=== PATIENT | male | born 1985 | race Caucasian/White ===

== ENCOUNTER 2018-11-26 12:03 | Day surgery (SDC) | payer OTHER ==
[~2018-11-26] VITALS: Ht 188 cm; Wt 98.9 kg
[~2018-11-26 12:03] MED LIST: FLUTISP
[2018-11-26] MEDS ORDERED: PROPOFOL 500 MG/50 ML VIAL As Ordered ONE (12:18)
[2018-11-26] MEDS ORDERED: LIDOCAINE 2% INJ 100 MG/5 ML SDV (FOR ANES.) As Ordered ONE (12:22)
[2018-11-26] MEDS: NS 1,000 ML IV ONE (12:25)
[2018-11-26] MEDS ORDERED: fentaNYL 100 MCG/2 ML INJECTION (J3010) As Ordered ONE (12:33)
--- NOTE | 2018-11-26 13:21 | ROOR ---
Patient Name: Logan Clayton Procedure Date: 11/26/2018 1:01 PM Date of : 1985 Age: 33 Room: [facility] Gender: Male Note Status: Finalized Procedure: Upper Endoscopy + Biopsies + Dilatation Indications: Dysphagia, Heartburn Providers: Hayder Javier MD Referring MD: Olga Fernandez Requesting Provider: Medicines: Monitored Anesthesia Care Complications: No immediate complications. Procedure: Pre-Anesthesia Assessment: - The heart rate, respiratory rate, oxygen saturations, blood pressure, adequacy of pulmonary ventilation, and response to care were monitored throughout the procedure. The Endoscope was introduced through the mouth, and advanced to the second part of duodenum. The upper GI endoscopy was accomplished without difficulty. The patient tolerated the procedure well. Findings: The Z-line was regular and was found 40 cm from the incisors. A small hiatal hernia was present. A non-obstructing Schatzki ring was found at the gastroesophageal junction. A TTS dilator was passed through the scope. Dilation with an 18-19-20 mm balloon dilator was performed to 20 mm. Biopsies were taken with a cold forceps for histology. The exam was otherwise without abnormality. Impression: - Z-line regular, 40 cm from the incisors. - Small hiatal hernia. - Non-obstructing Schatzki ring. Dilated. Biopsied. - The examination was otherwise normal. Recommendation: - Await pathology results. - Discharge patient to home. - Follow an antireflux regimen. - Use Prilosec (omeprazole) 40 mg PO daily. - Return to referring physician. - The findings and recommendations were discussed with the patient's family. Hayder Javier MD Hayder Javier MD 11/26/2018 1:20:56 PM Electronically signed by Hayder Javier MD Number of Addenda: 0 Note Initiated On: 11/26/2018 1:01 PM Estimated Blood Loss: Estimated blood loss: none.
[2018-11-26] MEDS ORDERED: PROPOFOL 200 MG/20 ML VIAL As Ordered ONE (13:24)
--- NOTE | 2018-11-26 13:37 | ROOR ---
Patient Name: Logan Clayton Procedure Date: 11/26/2018 1:03 PM Date of : 1985 Age: 33 Room: [facility] Gender: Male Note Status: Finalized Procedure: Total Colonoscopy to Cecum + Cold Snare Polypectomy + Hemoclip Indications: Colon cancer screening in patient at increased risk: Family history of 1st-degree relative with colon polyps Providers: Hayder Javier MD Referring MD: Olga Fernandez Requesting Provider: Medicines: Monitored Anesthesia Care Complications: No immediate complications. Procedure: Pre-Anesthesia Assessment: - The heart rate, respiratory rate, oxygen saturations, blood pressure, adequacy of pulmonary ventilation, and response to care were monitored throughout the procedure. The Colonoscope was introduced through the anus and advanced to the cecum, identified by appendiceal orifice and ileocecal valve. The colonoscopy was performed without difficulty. The patient tolerated the procedure well. The quality of the bowel preparation was excellent. Findings: The perianal and digital rectal examinations were normal. Non-bleeding internal hemorrhoids were found during retroflexion. The hemorrhoids were small and Grade I (internal hemorrhoids that do not prolapse). Two sessile polyps were found in the rectum. The polyps were small in size. These polyps were removed with a cold snare. Resection and retrieval were complete. The exam was otherwise without abnormality on direct and retroflexion views. Impression: - Non-bleeding internal hemorrhoids. - Two small polyps in the rectum, removed with a cold snare. Resected and retrieved. - The examination was otherwise normal on direct and retroflexion views. - The exam was otherwise normal to the cecum. Recommendation: - Patient has a contact number available for emergencies. The signs and symptoms of potential delayed complications were discussed with the patient. Return to normal activities tomorrow. Written discharge instructions were provided to the patient. - High fiber diet. - Discharge patient to home. - Continue present medications. - Await pathology results. - Repeat colonoscopy in 5 years for surveillance. - Return to referring physician. - Telephone GI clinic for pathology results in 1 week. - The findings and recommendations were discussed with the patient's family. Hayder Javier MD Hayder Javier MD 11/26/2018 1:37:02 PM Electronically signed by Hayder Javier MD Number of Addenda: 0 Note Initiated On: 11/26/2018 1:03 PM Estimated Blood Loss: Estimated blood loss: none.
[2018-11-26 14:00] VITALS: BP 123/81
== END 2018-11-26 14:20 | disposition home or self-care (01) ==
LOC: M OPP 12:03
PROVIDERS: ATTEND Internal Medicine Gastroenterology
DX: Z12.11 Encounter for screening for malignant neoplasm of colon (principal); Z83.71 Family history of colonic polyps; K64.0 First degree hemorrhoids; K62.1 Rectal polyp; K44.9 Diaphragmatic hernia without obstruction or gangrene; K22.2 Esophageal obstruction; R13.10 Dysphagia, unspecified; R12 Heartburn
CPT/HCPCS: 43249; 45385; 88305; J3010

== ENCOUNTER → 2021-01-01 | Outpatient (CLI) | payer OTHER ==
[~2021-01-01] MED LIST changes: +PROHANCE 279.3MG/ML 15ML VIAL ONE; +PROHANCE 279.3MG/ML 5ML VIAL ONE
--- NOTE | 2021-01-02 19:30 | REPVR ---
PROCEDURE INFORMATION: Exam: MR Head Without and With Contrast; Internal Auditory Canals Exam date and time: 01/01/2021 12:10 PM Age: 35 years old Clinical indication: Other: Tinnitis right; Additional info: Tinnitus RT ear, HX trauma to head TECHNIQUE: Imaging protocol: MR of the head without and with intravenous contrast. Exam focused on the internal auditory canals. Contrast material: PROHANCE; Contrast volume: 20 ml; Contrast route: INTRAVENOUS (IV); COMPARISON: No relevant prior studies available. FINDINGS: Brain: No intracranial hemorrhage or extra-axial fluid collection. No evidence of mass effect or midline shift. No white matter abnormalities. No restricted diffusion to suggest acute infarct. Normal appearance of cranial nerves on thin T2 sequences. Cerebellopontine angle cisterns are clear. Meckel's caves are clear. Internal auditory canals are clear. No abnormal intracranial enhancement. Ventricles: Ventricles, cisterns, and sulci are normal. Mastoid air cells: Unremarkable. No effusions. Bones/joints: Unremarkable. IMPRESSION: No acute intracranial findings. Electronically signed by: Dashawn House On 01/02/2021 19:30:00 PM
== END ==
LOC: M PLAIMG 11:21
PROVIDERS: ATTEND Otolaryngology
DX: H93.11 Tinnitus, right ear (principal)
CPT/HCPCS: 70553; A9576

== ENCOUNTER 2021-02-17 07:35 | Day surgery (SDC) | payer OTHER ==
[~2021-02-17] VITALS: Ht 182.9 cm; Wt 106.5 kg
[~2021-02-17 07:35] MED LIST changes: +LIDOCAINE 1% MDV 20ML VIAL SQ PRN; +LR 1,000 ML IV ONE; -PROHANCE 279.3MG/ML 15ML VIAL ONE; -PROHANCE 279.3MG/ML 5ML VIAL ONE
[2021-02-17] MEDS ORDERED: CIPRODEX OTIC SUSP 7.5ML As Ordered ONE (08:04)
[2021-02-17] MEDS ORDERED: DESFLURANE 240 ML INHALANT As Ordered ONE (08:12)
[2021-02-17] MEDS ORDERED: LIDOCAINE 2% 100MG/5ML SDV (FOR ANES.) As Ordered ONE (10:09)
[2021-02-17] MEDS ORDERED: propofoL 200 MG/20 ML VIAL As Ordered ONE (10:09)
[2021-02-17] MEDS ORDERED: ONDANSETRON 4MG/2ML VIAL As Ordered ONE (10:10)
[2021-02-17] MEDS ORDERED: dexameTHASONE 4 MG/ML 1ML VIAL (J1100 PER 1MG) As Ordered ONE (10:10)
[2021-02-17] MEDS ORDERED: fentaNYL 100 MCG/2 ML INJECTION As Ordered ONE (10:10)
[2021-02-17] MEDS ORDERED: MIDAZOLAM INJ 2MG/2ML VIAL (J2250 PER 1MG) As Ordered ONE (10:13)
[2021-02-17 11:45] VITALS: BP 124/77
[2021-02-17] MEDS ORDERED: LR 1,000 ML IV SCH ×2 (11:45→11:50)
[2021-02-17] MEDS ORDERED: fentaNYL 100 MCG/2 ML INJECTION IV PRN (11:45)
[2021-02-17] MEDS ORDERED: ONDANSETRON 4MG/2ML VIAL IV PRN (11:45)
[2021-02-17] MEDS ORDERED: PERCOCET 5MG/325MG TAB PO PRN (11:45)
== END 2021-02-17 12:05 | disposition home or self-care (01) ==
LOC: M SDC 07:35
PROVIDERS: ATTEND Otolaryngology
DX: H69.81 Other specified disorders of Eustachian tube, right ear (principal); H93.11 Tinnitus, right ear; M54.9 Dorsalgia, unspecified; G47.30 Sleep apnea, unspecified; Z87.828 Personal history of other (healed) physical injury and trauma
CPT/HCPCS: 69436; J1100; J2250; J2405; J3010

== ENCOUNTER 2021-09-29 09:15 | Day surgery (SDC) | payer OTHER ==
[~2021-09-29] VITALS: Ht 188 cm; Wt 98.4 kg
[~2021-09-29 09:15] MED LIST changes: +AMIT50TA PO; -LIDOCAINE 1% MDV 20ML VIAL SQ PRN; +LIDOCAINE 2% 100MG/5ML SDV (FOR ANES.) As Ordered ONE; -LR 1,000 ML IV ONE; +NS 1,000 ML IV ONE; +PROZ40CA PO; +fentaNYL 100 MCG/2 ML INJECTION As Ordered ONE; +propofoL 500 MG/50 ML VIAL As Ordered ONE
[2021-09-29 10:50] VITALS: BP 123/85
== END 2021-09-29 11:02 | disposition home or self-care (01) ==
LOC: M OPP 09:15
PROVIDERS: ATTEND Internal Medicine Gastroenterology
DX: Z12.11 Encounter for screening for malignant neoplasm of colon (principal); Z86.010 Personal history of colon polyps; K64.0 First degree hemorrhoids; R13.10 Dysphagia, unspecified; I10 Essential (primary) hypertension; G47.30 Sleep apnea, unspecified; Z79.899 Other long term (current) drug therapy; Z99.89 Dependence on other enabling machines and devices; Z86.79 Personal history of other diseases of the circulatory system
CPT/HCPCS: 43249; 45378; J3010

== ENCOUNTER 2021-12-21 12:30 | Emergency (ER) | payer OTHER ==
[~2021-12-21] VITALS: Ht 185.4 cm; Wt 105.7 kg
[~2021-12-21 12:30] MED LIST changes: -LIDOCAINE 2% 100MG/5ML SDV (FOR ANES.) As Ordered ONE; -NS 1,000 ML IV ONE; -fentaNYL 100 MCG/2 ML INJECTION As Ordered ONE; -propofoL 500 MG/50 ML VIAL As Ordered ONE
[2021-12-21 14:31] LABS: BASO % 0.6 % (0.0-1.0); EOS # 0.2 10^3/uL (0.0-0.5); EOS % 3.1 % (0.0-3.0); HEMATOCRIT 42.5 % (42.0-52.0); LYMPH # 1.2 10^3/uL (1.5-5.0); LYMPH % 17.2 % (24.0-44.0); MEAN CORPUSCULAR HEMOGLOBIN 29.6 pg (27.0-33.0); MEAN CORPUSCULAR HGB CONC 32.9 g/dl (32.0-36.5); MEAN CORPUSCULAR VOLUME 89.9 fl (80.0-96.0); MONO # 0.6 10^3/uL (0.0-0.8); MONO % 8.9 % (2.0-8.0); NEUTROPHILS # 4.7 10^3/uL (1.5-8.5); NEUTROPHILS % 69.9 % (36.0-66.0); PLATELET COUNT, AUTOMATED 284 10^3/uL (150-450); RED BLOOD COUNT 4.73 10^6/uL (4.30-6.10); WHITE BLOOD COUNT 6.8 10^3/uL (4.0-10.0)
[2021-12-21 14:43] VITALS: BP 132/86
== END 2021-12-21 14:45 | disposition home or self-care (01) ==
LOC: M ED 12:30
DX: K62.5 Hemorrhage of anus and rectum (principal); I10 Essential (primary) hypertension; G47.33 Obstructive sleep apnea (adult) (pediatric); F41.9 Anxiety disorder, unspecified; Z79.899 Other long term (current) drug therapy

== ENCOUNTER 2022-02-08 11:53 | Day surgery (SDC) | payer OTHER ==
[~2022-02-08] VITALS: Ht 185.4 cm; Wt 106.1 kg
[~2022-02-08 11:53] MED LIST changes: +dexameTHASONE 4 MG/ML 1ML VIAL (J1100 PER 1MG) IV ONE
[2022-02-08] MEDS ORDERED: LR 1,000 ML IV SCH (12:10)
[2022-02-08] MEDS ORDERED: MIRT1TAB17 PO (12:28)
[2022-02-08] MEDS ORDERED: CIPRODEX OTIC SUSP 7.5ML As Ordered ONE (13:51)
[2022-02-08] MEDS ORDERED: METHYLENE BLUE 0.5% (5MG/ML) 10 ML AMP (PROVAYBLUE) As Ordered ONE (13:51)
[2022-02-08] MEDS ORDERED: OXYMETAZOLINE 0.05% NASAL SPRAY (AFRIN) As Ordered ONE (13:52)
[2022-02-08] MEDS ORDERED: EPINEPHrine 1MG/ML INJ 30ML MD-VIAL As Ordered ONE (13:52)
[2022-02-08] MEDS ORDERED: propofoL 200 MG/20 ML VIAL As Ordered ONE (14:00)
[2022-02-08] MEDS ORDERED: LIDOCAINE 2% 100MG/5ML SDV (FOR ANES.) As Ordered ONE (14:01)
[2022-02-08] MEDS ORDERED: MIDAZOLAM INJ 2MG/2ML VIAL (J2250 PER 1MG) As Ordered ONE (14:03)
[2022-02-08] MEDS ORDERED: fentaNYL 100 MCG/2 ML INJECTION As Ordered ONE (14:03)
[2022-02-08] MEDS ORDERED: ONDANSETRON 4MG 2ML VIAL As Ordered ONE (14:04)
[2022-02-08] MEDS ORDERED: ACETAMINOPHEN 1000MG 100ML IV BAG As Ordered ONE (14:40)
[2022-02-08] MEDS ORDERED: oxyCODONE 5MG TAB PO PRN (15:35)
[2022-02-08] MEDS ORDERED: fentaNYL 100 MCG/2 ML INJECTION IV PRN (15:35)
[2022-02-08] MEDS ORDERED: ONDANSETRON 4MG 2ML VIAL IV PRN (15:35)
[2022-02-08] MEDS ORDERED: KETOROLAC 30 MG/ML 1ML VIAL IV STA (17:33)
[2022-02-08 18:15] VITALS: BP 126/69
== END 2022-02-08 18:18 | disposition home or self-care (01) ==
LOC: M SDC 11:53
PROVIDERS: ATTEND Otolaryngology
DX: H69.91 Unspecified Eustachian tube disorder, right ear (principal); F41.9 Anxiety disorder, unspecified; F43.10 Post-traumatic stress disorder, unspecified; Z79.899 Other long term (current) drug therapy
CPT/HCPCS: 69421; 69705; J0131; J0171; J1885; J2250; J2405; J3010

== ENCOUNTER → 2022-03-18 | Outpatient (CLI) | payer OTHER ==
[~2022-03-18] MED LIST changes: +MIRT1TAB17 PO; -dexameTHASONE 4 MG/ML 1ML VIAL (J1100 PER 1MG) IV ONE
== END ==
LOC: M PLAIMG 06:42
PROVIDERS: ATTEND Physical Medicine & Rehabilitation
DX: M51.24 Other intervertebral disc displacement, thoracic region (principal); M50.322 Other cervical disc degeneration at C5-C6 level

== ENCOUNTER → 2023-03-01 | Outpatient (CLI) | payer OTHER | LOC: M RAD 08:45 | PROVIDERS: ATTEND Otolaryngology | DX: J32.0 Chronic maxillary sinusitis (principal); J32.4 Chronic pansinusitis ==

== ENCOUNTER → 2023-04-21 | Outpatient (CLI) | payer OTHER | LOC: M PLAIMG 10:11 | PROVIDERS: ATTEND Physician Assistant | DX: M47.22 Other spondylosis with radiculopathy, cervical region (principal); M50.21 Other cervical disc displacement, high cervical region ==

== ENCOUNTER 2023-05-05 10:09 | Emergency (ER) | payer OTHER ==
[2023-05-05] MEDS ORDERED: PROC2.5C (11:27)
[2023-05-05] MEDS ORDERED: MIDO5TA (11:27)
[2023-05-05] MEDS ORDERED: SILD50TA2 (11:27)
[2023-05-05] MEDS ORDERED: OFLOSO (11:27)
[2023-05-05] MEDS ORDERED: RIZA10TA2 (11:27)
[2023-05-05] MEDS ORDERED: PROP20TA72 (11:27)
[2023-05-05] MEDS ORDERED: GABA-282 (11:27)
[2023-05-05] MEDS ORDERED: VENL37.598 PO (11:27)
[2023-05-05] MEDS ORDERED: OMEP40CA5 (11:27)
[2023-05-05] MEDS ORDERED: AMIT75TA (11:27)
[2023-05-05] MEDS ORDERED: VENL150C43 PO (11:27)
[2023-05-05] MEDS ORDERED: ALBU8.5H (11:27)
[2023-05-05] MEDS ORDERED: GUAI600T12 (11:27)
[2023-05-05] MEDS: IPRATROPIUM 0.5MG/ALBUTEROL 2.5MG INH SOL UD 3ML (DUONEB) NEB PRN (11:42)
[2023-05-05 12:14] LABS: BASO # 0.1 10^3/uL (0.0-0.2); BASO % 1.1 % (0.0-1.0); EOS # 0.2 10^3/uL (0.0-0.5); HEMATOCRIT 46.1 % (42.0-52.0); HEMOGLOBIN 15.5 g/dl (13.5-17.5); LYMPH # 1.3 10^3/uL (1.5-5.0); LYMPH % 24.4 % (24.0-44.0); MEAN CORPUSCULAR HEMOGLOBIN 29.3 pg (27.0-33.0); MEAN CORPUSCULAR HGB CONC 33.6 g/dl (32.0-36.5); MEAN CORPUSCULAR VOLUME 87.1 fl (80.0-96.0); MONO # 0.5 10^3/uL (0.0-0.8); MONO % 10.2 % (2.0-8.0); NEUTROPHILS # 3.3 10^3/uL (1.5-8.5); NEUTROPHILS % 61.1 % (36.0-66.0); PLATELET COUNT, AUTOMATED 268 10^3/uL (150-450); RED BLOOD COUNT 5.29 10^6/uL (4.30-6.10); WHITE BLOOD COUNT 5.3 10^3/uL (4.0-10.0)
[2023-05-05 12:18] LABS: ERYTHROCYTE SEDIMENTATION RATE 35 mm/hr (0-15)
[2023-05-05 12:28] LABS: D-DIMER QUANT 0.76 ug/mL (<0.5); INR 0.88; PROTHROMBIN TIME 11.7 SECONDS (12.5-14.5)
[2023-05-05 12:43] LABS: BLOOD UREA NITROGEN 12 MG/DL (9-23); CALCIUM LEVEL 9.3 MG/DL (8.5-10.1); CARBON DIOXIDE LEVEL 27 MMOL/L (20-31); CHLORIDE LEVEL 106 MMOL/L (98-107); CREATININE FOR GFR 0.64 MG/DL (0.70-1.30); GLOMERULAR FILTRATION RATE > 60.0 (>60); GLUCOSE, FASTING 89 MG/DL (60-100); POTASSIUM SERUM 4.8 MMOL/L (3.5-5.1); SODIUM LEVEL 140 MMOL/L (136-145)
[2023-05-05] MEDS ORDERED: ISOVUE-370 76% 100ML VIAL As Ordered ONE (12:49)
[2023-05-05 13:21] VITALS: BP 123/67; TEMP 97.2; O2SAT 100
[2023-05-05] MEDS ORDERED: ALBU2.5V10 NEB (13:26)
[2023-05-05] MEDS ORDERED: VENTAER INH (13:27)
[2023-05-05] MEDS ORDERED: PRED20TA PO (13:27)
== END 2023-05-05 13:27 | disposition home or self-care (01) ==
LOC: M ED 10:09
DX: J98.01 Acute bronchospasm (principal); R05.3 Chronic cough; K21.9 Gastro-esophageal reflux disease without esophagitis; F41.9 Anxiety disorder, unspecified; Z87.09 Personal history of other diseases of the respiratory system
CPT/HCPCS: 71046; 71275; 80048; 85025; 85379; 85610; 85652; 85730; 86140; 87486; 87581; 87633; 87798; 94640; 99284; Q9967

== ENCOUNTER 2023-08-30 08:26 | Day surgery (SDC) | payer OTHER ==
[~2023-08-30] VITALS: Ht 185.4 cm; Wt 100.5 kg
[~2023-08-30 08:26] MED LIST changes: +ALBU2.5V10 NEB; +ALBU8.5H; +AMIT75TA; +AMIT75TA PO; +GABA-282; +GABA-282 PO; +GUAI600T12; +LIDOCAINE 2% 100MG/5ML SDV (FOR ANES.) As Ordered ONE; +MIDO5TA; +MIDO5TA PO; +MUCI600T31 PO; +OFLOSO; +OMEP40CA4 PO; +OMEP40CA5; +PRED20TA PO; +PROC2.5C; +PROC2.5C PR; +PROP20TA72; +PROP20TA72 PO; +RIZA10TA2; +RIZA10TA64 PO; +SILD50TA PO; +SILD50TA2; +VENL150C43 PO; +VENL37.598 PO; +VENTAER INH; +fentaNYL 100 MCG/2 ML INJECTION As Ordered ONE; +propofoL 200 MG/20 ML VIAL As Ordered ONE
[2023-08-30] MEDS: NS 1,000 ML IV ONE (08:48)
[2023-08-30 10:07] VITALS: TEMP 97.5
[2023-08-30 10:28] VITALS: BP 121/92; O2SAT 99
== END 2023-08-30 10:35 | disposition home or self-care (01) ==
LOC: M OPP 08:26
PROVIDERS: ATTEND Internal Medicine Gastroenterology
DX: Z86.010 Personal history of colon polyps (principal); K64.0 First degree hemorrhoids; K63.89 Other specified diseases of intestine; K50.00 Crohn's disease of small intestine without complications; K22.89 Other specified disease of esophagus; K31.89 Other diseases of stomach and duodenum; R12 Heartburn; G47.33 Obstructive sleep apnea (adult) (pediatric); Z99.89 Dependence on other enabling machines and devices; Z79.2 Long term (current) use of antibiotics; Z79.899 Other long term (current) drug therapy
CPT/HCPCS: 43239; 45380; 88305; J3010

== ENCOUNTER → 2023-10-16 | Outpatient (CLI) | payer OTHER ==
[~2023-10-16] MED LIST changes: +E-Z-GAS II EFFERVESCENT PACKET (SODIUM BICARB./CITRIC ACID/SIMETHICONE) As Ordered ONE; +E-Z-HD 98% w/w 340GM SUSP BTL As Ordered ONE; +E-Z-PAQUE 96% w/w SUSP 176GM BTL As Ordered ONE; -LIDOCAINE 2% 100MG/5ML SDV (FOR ANES.) As Ordered ONE; -fentaNYL 100 MCG/2 ML INJECTION As Ordered ONE; -propofoL 200 MG/20 ML VIAL As Ordered ONE
== END ==
LOC: M RAD 08:35
PROVIDERS: ATTEND Internal Medicine Gastroenterology
DX: R19.7 Diarrhea, unspecified (principal)

== ENCOUNTER → 2023-10-31 | Outpatient (CLI) | payer OTHER ==
[~2023-10-31] MED LIST changes: -E-Z-GAS II EFFERVESCENT PACKET (SODIUM BICARB./CITRIC ACID/SIMETHICONE) As Ordered ONE; -E-Z-HD 98% w/w 340GM SUSP BTL As Ordered ONE; -E-Z-PAQUE 96% w/w SUSP 176GM BTL As Ordered ONE
[2023-11-02 15:10] LABS: Chitobioside Carbohydrat (ACCA 0 units (0-90); Laminaribioside Carbohyd (ALCA 16 units (0-60); Mannobioside Carbohydrat (AMCA 12 units (0-100); Saccharomyces cerevisiae IgG A 16 units (0-50)
== END ==
LOC: M LAB 10:12
PROVIDERS: ATTEND Internal Medicine Gastroenterology
DX: R19.7 Diarrhea, unspecified (principal)

== ENCOUNTER → 2024-07-03 | Outpatient (CLI) | payer OTHER ==
[~2024-07-03] MED LIST changes: +GABA-1172; +GABA-1172 PO; -GABA-282; -GABA-282 PO
== END ==
LOC: M PLAIMG 06:37
PROVIDERS: ATTEND Physician Assistant
DX: M47.12 Other spondylosis with myelopathy, cervical region (principal); M50.21 Other cervical disc displacement, high cervical region

== ENCOUNTER → 2024-10-31 | Outpatient (CLI) | payer OTHER | LOC: M RAD 15:42 | PROVIDERS: ATTEND Otolaryngology | DX: J32.4 Chronic pansinusitis (principal) ==

== ENCOUNTER → 2024-12-06 | Outpatient (CLI) | payer OTHER ==
[2024-12-06 16:38] LABS: FREE T4 1.55 NG/DL (0.89-1.76)
[2024-12-06 16:39] LABS: VITAMIN B12 LEVEL 543.0 PG/ML (211-911)
== END ==
LOC: M PLALAB 12:40
PROVIDERS: ATTEND Psychiatry & Neurology Neurology
DX: D51.9 Vitamin B12 deficiency anemia, unspecified (principal); E07.9 Disorder of thyroid, unspecified

== ENCOUNTER → 2025-02-21 | Outpatient (CLI) | payer OTHER ==
[~2025-02-21] MED LIST changes: +ATOG30TA PO; +BRIN1TAB3 PO; +FLUT15.819 NARES; +ISOVUE-300 61% 100 ML VIAL As Ordered ONE; +LIDO1PAD TOP; +LIDOCAINE 1% MDV 20 ML VIAL As Ordered ONE; +MESA800T8 PO; +METH-1165 PO; +MONT10TA97 PO; +PRAZ2CAP PO; +PROHANCE 279.3MG/ML 5ML VIAL As Ordered ONE
== END ==
LOC: M RAD 08:20
PROVIDERS: ATTEND Physician Assistant Surgical
DX: S43.402A Unspecified sprain of left shoulder joint, initial encounter (principal); M25.312 Other instability, left shoulder; X58.XXXA Exposure to other specified factors, initial encounter; Y92.9 Unspecified place or not applicable
CPT/HCPCS: 23350; 73223; 77002; A9579; Q9967